=== PATIENT | female | born 1960 | race Caucasian/White ===

== ENCOUNTER → 2022-12-05 | Outpatient (CLI) | payer OTHER | LOC: MAMMO 07:51 | PROVIDERS: ATTEND Student in an Organized Health Care Education/Training Program | DX: Z12.31 Encounter for screening mammogram for malignant neoplasm of breast (principal) | CPT/HCPCS: 77067 ==

== ENCOUNTER → 2024-04-02 | Day surgery (SDC) | payer OTHER ==
[~2024-04-02] MED LIST: ADDERALL 20 MG20 MG PO; CALCIUM W/ VIT D PO; COLLAGEN-VIT C1 EACH PO; FISH OIL 1,0001 EACH PO; HYOSCYAMINE SULFATE 0.5 MG/ML INJ ONE; LIDOCAINE HCL 2% LOCAL INJ 5 ML SDV VIAL INJ ONE; MULTI-VITAMIN1 EACH PO; PROPOFOL IV EMULSION 10 MG/ML 20 ML VIAL ONE; PROPOFOL IV EMULSION 10 MG/ML 50 ML VIAL IV ONE
[2024-04-02] MEDS: LACTATED RINGER'S 1,000 ML ONE (06:58)
[2024-04-02 08:55] VITALS: BP 110/61; PULSE 89; RESP 17; O2SAT 98
== END | disposition home or self-care (01) ==
LOC: OR 06:18
PROVIDERS: ATTEND Internal Medicine Gastroenterology
DX: Z12.11 Encounter for screening for malignant neoplasm of colon (principal); D12.0 Benign neoplasm of cecum; K64.8 Other hemorrhoids; J45.909 Unspecified asthma, uncomplicated; F90.9 Attention-deficit hyperactivity disorder, unspecified type; Z01.810 Encounter for preprocedural cardiovascular examination; Z79.899 Other long term (current) drug therapy
CPT/HCPCS: 45385; 93005; J1980; J2001; J2704 ×2; J7121; 45378